=== PATIENT | female | born 1980 | race Caucasian/White ===

== ENCOUNTER 2017-12-16 06:56 | Emergency (ER) | payer BC, OTHER ==
[2017-12-16] MEDS ORDERED: NALOXONE HCL 0.4 MG/ML VIAL ONE (07:00)
[2017-12-16] MEDS ORDERED: RAPID SEQUENCE INTUBATION KIT NR ONE (07:01)
[2017-12-16] MEDS ORDERED: TENECTEPLASE 50 MG VIAL IVPUSH ONE (07:06)
[2017-12-16] MEDS ORDERED: AMIODARONE HCL 150 MG/3 ML VIAL ONE (07:38)
--- NOTE | 2017-12-16 08:26 | PDOC ---
History of Present Illness - General Chief Complaint: Respiratory Arrest Stated Complaint: WEAKNESS/S.O.B. Time Seen by Provider: 12/16/17 08:26 - History of Present Illness Initial Comments: 12/16/17 08:27 Patient was seen and evaluated immediately upon arrival. This H&P is being recorded after the patient was pronounced . 37-year-old female with history of anemia was brought in by EMS for chest discomfort and witnessed syncope. Patient was last in her normal baseline state of health the night prior to arrival. Upon awakening the patient complained of chest pain, and was noted by her to have syncopized when going to the bathroom. EMS was contacted and the patient was transported to the ER. During the transfer, patient screamed and discomfort several times and upon my initial evaluation, was noted to be pale with agonal respirations. EKG revealed sinus bradycardia at the rate of [address] segment elevations in lateral leads and ST segment depressions in inferior leads. Patient's initial blood pressure was 102/43. BVM was initiated by me. And patient was prepped for RSI. Blood glucose by Finger stick was noted to be normal. Patient received 1.4 mg of Narcan intramascularly without improvement. Shortly after the initial evaluation , patient's heart rate slowed down into the low 30s, with decrease in blood pressure to 80 systolic. A milligram of atropine was administered with minimal improvement in the heart rate. A bolus of IV fluids was also administered. RSI was performed using etomidate-20 mg IV push as well as succinylcholine-100 mg IV push. 7 Stateless ET tube was passed through the cords, with confirmation by auscultation and capnometry. Shortly after the intubation, patient became pulseless with an underlying rhythm revealed to be slow junctional rhythm with wide complex QRS. CPR was initiated, atropine-1 mg and epinephrine-1 mg IV push were administered, patient also received an amp of sodium bicarbonate and an amp of calcium chloride. Bedside echocardiogram was performed and revealed no cardiac motion, no evidence of pericardial effusion and a dilated right ventricle. That finding coupled with patient chest pain and syncope during initial symptoms onset, suggested massive pulmonary embolism as the cause of patient's presentation and decision was made after weighing risks versus benefits of TPA to administer 50 mg of IV TPA. A bolus of normal saline was also administered. CPR continued briefly after administration of TPA. On reevaluation, a weak carotid pulse was noted and bedside echocardiogram revealed faint cardiac motion with diffuse hypokinesis and a persistently dilated right ventricle. Epinephrine drip was initiated for blood pressure support. Shortly thereafter, patient's underlying rhythm degenerated into coarse ventricular fibrillation and a serious of shocks was administered at 200J. Amiodarone-300 mg IV push was administered as well as additional doses of atropine, epinephrine, calcium chloride and sodium bicarbonate as per ACLS protocol. Resuscitative efforts continued until 8:01 AM (more than 20 minutes of pulseless state), without achieving ROSC. bloody secretions were intermitently suctioned from ET tube. Serial cardiac evaluation by echocardiogram revealed no cardiac motion and patient was pronounced at 8: 01am. Patient's was notified of the patient's passing shortly thereafter. 12/16/17 11:20 Past History - Past Medical History Allergies/Adverse Reactions: Allergies Allergy/AdvReac Type Severity Reaction Status Date / Time Penicillins Allergy Intermediate Itching Verified 12/16/17 08:11 Home Medications: Ambulatory Orders NK [No Known Home Medication] 12/16/17 Anemia: No Asthma: No Cancer: No Cardiac Disorders: No CVA: No COPD: No CHF: No Dementia: No Diabetes: No GI Disorders: No Disorders: No HTN: No Hypercholesterolemia: No Liver Disease: No Seizures: No Thyroid Disease: No - Suicide/Smoking/Psychosocial Hx Smoking History: Never smoked Hx Alcohol Use: Yes (RARELY) Drug/Substance Use Hx: No Substance Use Type: None Hx Substance Use Treatment: No Review of Systems - Review of Systems Able to Perform ROS?: No (patient's clinical cond) *Physical Exam - Physical Exam Comments: 12/16/17 08:48 EXAMINATION on initial evaluation CONSTITUTIONAL: Pale, cool, with agonal respirations HEAD: Normocephalic; atraumatic EYES: Pupils are 3 mm bilaterally, poorly reactive; ENMT: External appears normal; normal oropharynx NECK: Supple; non-tender; no cervical lymphadenopathy CARD: Bradycardic, Normal S1, S2; no murmurs, rubs, or gallops RESP: Normal chest excursion with respiration; breath sounds clear and equal bilaterally; no wheezes, rhonchi, or rales ABD: Soft, non-distended; non-tender; no palpable organomegaly, no palpable hernias EXT: Normal ROM in all four extremities; non-tender to palpation; distal pulses intact SKIN: Warm, dry, no rash NEURO: Patient is unresponsive, does not localize to sternal rub, GCS of 3 ED Treatment Course - LABORATORY CBC & Chemistry Diagram: 12/16/17 11:15 12/16/17 11:15 Medical Decision Making - Critical Care Time Total Critical Care Time (minutes): 40 Critical Care Statement: The care of this patient involved high complexity decision making to prevent further life threatening deterioration of the patient 's condition and/or to evaluate & treat vital organ system(s) failure or risk of failure. - Medical Decision Making 12/16/17 09:[address] a right femoral central venous catheter with several attempts at venipuncture the procedure was aborted. It was noted that normal saline administered through a peripheral line in the right foot was leaking through the venipuncture sites in the right growing. 12/16/17 09:37 driver's license examiner contacted and case excepted. [place] number is [id number]. [place] name: [id number] *DC/Admit/Observation/Transfer Diagnosis at time of Disposition: - Referrals Referrals: Josr Palm MD [Primary Care Provider] - - Patient Instructions - Post Discharge Activity
[2017-12-16 11:23] LABS: HEMATOCRIT 30.3 % (32.4-45.2); HEMOGLOBIN 9.2 GM/dL (10.7-15.3); MCH 28.1 pg (25.7-33.7); MCHC 30.3 g/dl (32.0-36.0); MEAN CELL VOLUME 92.7 fl (80-96); MEAN PLT VOLUME 12.5 fl (7.5-11.1); PLATELET COUNT 103 K/MM3 (134-434); RBC 3.27 M/mm3 (3.60-5.2); RDW 15.5 % (11.6-15.6); WHITE BLOOD COUNT 9.9 K/mm3 (4.0-10.0)
[2017-12-16 11:36] LABS: INR 1.09 (0.82-1.09); PROTHROMBIN TIME (PATIENT) 12.3 SEC (9.98-11.88)
[2017-12-16 11:44] LABS: ALBUMIN 2.3 g/dl (3.4-5.0); ANION GAP 16 (8-16); BILIRUBIN,TOTAL 0.3 mg/dL (0.2-1.0); BLOOD UREA NITROGEN 20 mg/dL (7-18); CALCIUM 7.9 mg/dL (8.5-10.1); CHLORIDE 111 mmol/L (98-107); CO2 16 mmol/L (21-32); GLUCOSE,RANDOM 176 mg/dL (74-106); SGPT/ALT 132 U/L (12-78); SODIUM 143 mmol/L (136-145); TOT PROT 4.2 g/dl (6.4-8.2)
[2017-12-16 11:46] LABS: ALK PHOS 67 U/L (45-117)
[2017-12-16 11:48] LABS: POTASSIUM 4.1 mmol/L (3.5-5.1)
[2017-12-16 11:49] LABS: SGOT/AST 25 U/L (15-37)
[2017-12-16 12:22] LABS: ANISOCYTOSIS 1+; MACROCYTOSIS 1+; PLATELET ESTIMATE DECREASED
--- NOTE | 2017-12-16 16:27 | EKG ---
Test Reason : Blood Pressure : / mmHG Vent. Rate : 045 BPM Atrial Rate : 044 BPM P-R Int : 248 ms QRS Dur : 192 ms QT Int : 454 ms P-R-T Axes : 090 -71 004 degrees QTc Int : 392 ms MARKED SINUS BRADYCARDIA LEFT AXIS DEVIATION RIGHT BUNDLE BRANCH BLOCK CANNOT RULE OUT ANTEROSEPTAL INFARCT , AGE UNDETERMINED LATERAL INJURY PATTERN ACUTE CO / STEMI ABNORMAL ECG WHEN COMPARED WITH ECG OF 10-DEC-2003 07:27, CURRENT UNDETERMINED RHYTHM PRECLUDES RHYTHM COMPARISON, NEEDS REVIEW RIGHT BUNDLE BRANCH BLOCK IS NOW PRESENT MINIMAL CRITERIA FOR ANTEROSEPTAL INFARCT ARE NOW PRESENT Confirmed by SANDRA MALIK, JOSH ([id number]) on 12/16/2017 4:27:34 PM Referred By: Confirmed By:JOSH FLORES MD
== END 2017-12-16 12:00 | disposition expired ==
LOC: JER 06:56
PROC: 5A12012 Performance of Cardiac Output, Single, Manual (ICD-10-PCS; principal; 2017-12-16)
PROC: 0BH17EZ Insertion of Endotracheal Airway into Trachea, Via Natural or Artificial Opening (ICD-10-PCS; 2017-12-16)
PROC: 5A1935Z Respiratory Ventilation, Less than 24 Consecutive Hours (ICD-10-PCS; 2017-12-16)
DX: R09.2 Respiratory arrest (principal); D64.9 Anemia, unspecified
CPT/HCPCS: 36415; 80053; 82550; 82553; 84484; 84703; 85025; 85610; 93005; 93010; 99285-25